=== PATIENT | female | born 1975 | race Caucasian/White ===

== ENCOUNTER 2025-05-23 08:09 | Day surgery (SDC) | payer BC ==
[2025-05-23] MEDS ORDERED: Acetaminophen 500 MG TAB ONE (09:34)
[2025-05-23] MEDS: diphenhydrAMINE 25 MG CAP PO SCH (09:34)
[2025-05-23] MEDS ORDERED: diphenhydrAMINE 25 MG CAP ONE (09:34)
[2025-05-23] MEDS: Acetaminophen 500 MG TAB PO SCH (09:35)
[2025-05-23 10:18] VITALS: TEMP 98.1
[2025-05-23 14:34] VITALS: BP 161/68
== END 2025-05-23 14:35 | disposition home or self-care (01) ==
LOC: ONC/OP 08:09
PROVIDERS: ATTEND Student in an Organized Health Care Education/Training Program
DX: D64.9 Anemia, unspecified (principal)
CPT/HCPCS: 36430; 86850; 86900; 86901; P9016